=== PATIENT | male | born 1985 | race Caucasian/White ===

== ENCOUNTER 2018-04-19 10:26 | Inpatient (IN) | payer BC, OTHER ==
[~2018-04-19] VITALS: Ht 177.8 cm; Wt 76.2 kg
--- NOTE | 2018-04-19 12:14 | NUR ---
PREADMISSION Pt 32 y/o male received in intake. Alert and oriented to name, place, and time. P[place]. Skin moist to touch. Both palms with perspiration noted. Bilateral hand tremors noted. Anxious and restless. Irritable. Pt is not intoxicated. VS: T=98.0 YX=675/90 P=90 R=16 O2=96%@ra. Stated is here for etoh. Explained unit rules with acknowledgement. States this is his first time in treatment.
[2018-04-19 12:25] VITALS: BP 151/90
[2018-04-19] MEDS ORDERED: MIRALAX 17 GM POWD.PACK PO PRN (13:30)
[2018-04-19] MEDS ORDERED: THIAMINE HCL 200 MG/2 ML VIAL IM ONE (13:30)
[2018-04-19] MEDS ORDERED: ONDANSETRON ODT 4 MG TAB.RAPDIS SL PRN (13:30)
[2018-04-19] MEDS ORDERED: LORAZEPAM 1 MG TABLET PO PRN ×2 (13:30)
[2018-04-19] MEDS ORDERED: LOPERAMIDE HCL 2 MG CAPSULE PO PRN ×2 (13:30)
[2018-04-19] MEDS ORDERED: LORAZEPAM 2 MG/1 ML VIAL IM PRN (13:30)
[2018-04-19] MEDS ORDERED: MAG HYDROX/AL HYDROX/SIMETH 30 ML LIQUID UDC PO PRN (13:30)
[2018-04-19] MEDS ORDERED: ONDANSETRON 4 MG/2 ML VIAL IM PRN (13:30)
[2018-04-19] MEDS ORDERED: MAGNESIUM HYDROXIDE 30 ML LIQUID UDC PO PRN (13:30)
--- NOTE | 2018-04-19 13:45 | NUR ---
ADMISSION Patient arrived on unit at 1225, body search completed by male CHIEF CLINICAL DIETITIAN, no contraband found. Patients body assessment completed by male staff, skin is intact. Patient is 5 feet 10 inches, and weighs 168 lbs. Patient is a 32 year old male, with admitting Dx: Etoh Withdrawal. Patient denies taking any home medications. Patient is currently presenting s/sx of withdrawal. Patient was oriented to unit and to room, educated regarding call light use with good verbal understanding. Patient noted with flat affect, facial flushing, clammy skin, tremulous, worried/anxious mood, withdrawn, disheveled, unshaven, unkempt. Patients vital signs: BP: 151/90 HR: 90 RR: 16 Temp: 98.2 Pulse Ox: 96 % room air. Is Alert and oriented x4. "My Primary care Physician is Dr. Sargent In [place], but its been two years since I last saw him". Patient first time in treatment. Denies taking any home medications. Substance Use/History: 1. Etoh- 562ml-1125ml of vodka daily for 13-14 years. Patient reports began drinking when he was 15 years old. Reports his longest period of sobriety was for 50 days, two years ago. Reports last drink was 04/18/2018 at 2300 consumed 562ml of vodka. Withdrawal signs and symptoms: Verbalized typical withdrawal symptoms are: lack of appetite, anger, short temper, sweating, insomnia, sweaty palms, shaking, nausea/vomiting, and weakness" Past Medical History: Pre-diabetic Depression Patient reports: I am pre diabetic, according to my doctor two years ago, he suggested I quit drinking and I have been seeing a Psychologist ( Dr. Piper Camejo, works with [facility] rehab clinic in [place]) for the past three weeks once weekly and she suggested that I have depression and recommended I see a psychiatrist for medication Denies SI/HI. Verbalized feeling sad. Reports that at the age of 16 he had suicidal thoughts and was seeing a Therapist Verbalized When I was 16, I went to see a therapist, because I had suicidal thoughts, but currently I dont feel like hurting myself nor do I plan on doing so Reports that at this time his support system is his Psychiatrist. Patient denies any history of seizures or withdrawal induced delirium. Reports positive history of blackouts. Patient reports he has experiences blackouts about once a week for the past few months verbalized When I blackout, I write work emails, and say things that I dont remember , the state of my room is off, people usually tell me things that I was doing while drinking, but I cannot recall Patient reports alcohol has negatively impacted his life. Reports He attempted sobriety on his own, two years ago by going cold turkey and could not do it, was successful for 50 days, then began drinking again. Patient verbalizes he began drinking in the beginning: to escape reality due to a rough home/life, so I would drink to not deal with it Patient verbalized he continues to drink now because I have a very stressful Job, alcohol helped me get my work done It was not difficult to stop when I was about 20 years old, but for the past 10 years it has been difficulty more and more I never thought before that It was a problem, but now I see that it is When I try to stop on my own, Its usually short lived, about an hour or two, and I get really anxious and agitated, and I just end up drinking again, I feel unwell and sick when I go without a drink. I have very strong alcohol cravings. In the Mornings when I wake up, I feel sluggish, dehydrated, headaches, lightheaded, and nausea/vomiting, and very anxious the minute I wake up and Im not drunk anymore. Drinking has impacted my life in the sense that I lost my job three weeks ago because of my drinking, I have weak relationships with other people, a bad relationship with my significant other, and professional embarrassment, In my life I am unhappy with my anxiety, anger levels, lack of hobbies outside work, my drinking, and relationships with my peers and significant other Everything is hard for me to do without using alcohol, I feel like socializing is a problem, and I feel like I cant relax when I was sober for 50 days it was difficult for me to stay sober, because alcohol was very accessible, and I felt very anxious with intense cravings, and not having a support system made it very difficult I feel like currently I have a toxic relationship with my partner and that is not making it any better Since I began seeing my phycologist she has become a great support system for me Verbalized: I lost my Job because of my drinking, and my peers tell me that I dont see the world the way it is, so I began seeing a psychologist and guided me in the right direction, so I can try to stop drinking Decided to come into treatment today because: " I realized i couldn't I couldn't control my habits and I had an opportunity to not do it alone, because I cant do it alone, I need help". Verbalized Internal Motivator is, " To understand why my perception of the world seems to be off, and not seeing things clearly, I am my own internal motivator" Patient plans after detox: After detox I plan to attend a rehab treatment facility to continue my sobriety, I plan on having personal responsibility, since my psychologist is a great support system, we will be using a device like a breathalyzer linked to her phone, and I will send her my results on a daily basis Patient currently not intoxicated and is exhibiting s/sx of withdrawal: Tremors, generalized discomfort, diaphoretic, increase anxiety, agitation, fidgety, restless, headache, with admitting CIWA score of: 16. Patient seen and examined by Dr. Andrade with new orders. Patients safety measures are in place. Call light with in reach, Fall and Seizure precautions are observed and in place. Will continue to monitor closely.
--- NOTE | 2018-04-19 14:10 | NUR ---
PRN ATIVAN Patient currently exhibiting s/sx of withdrawal: Tremors, generalized discomfort, diaphoretic, increase anxiety, agitation, fidgety, restless, headache, with admitting CIWA score of: 16. Administered Ativan 2 mg PO as ordered. Will monitor effectiveness of medication.
--- NOTE | 2018-04-19 14:30 | NUR ---
MD COMMUNICATION Patient to start a 3 day Ativan taper as ordered.
[2018-04-19 15:05] LABS: *AMPHETAMINE, URINE NEGATIVE (NEGATIVE); *BARBITURATE, URINE NEGATIVE (NEGATIVE); *CANNABINOID, URINE NEGATIVE (NEGATIVE); *COCCAINE, URINE NEGATIVE (NEGATIVE); *OPIATE, URINE NEGATIVE (NEGATIVE); *PHENCYCLIDINE SCREEN,URINE NEGATIVE (NEGATIVE)
--- NOTE | 2018-04-19 15:10 | NUR ---
ATIVAN REASSESSMENT Medication effective, noted less agitated, current CIWA score of: 15. Will continue to monitor.
[2018-04-19 16:08] VITALS: BP 150/89
[2018-04-19] MEDS: LORAZEPAM 1 MG TABLET PO SCH ×3 (16:17→20:38)
[2018-04-19 17:11] LABS: BASOPHILS % (AUTO) 0.6 % (0.0-2.0); EOSINOPHILS # (AUTO) 0.1 K/uL (0.0-0.7); EOSINOPHILS % (AUTO) 1.6 % (0.0-7.0); HEMATOCRIT 49.1 % (36.7-47.1); LYMPHOCYTES # (AUTO) 1.9 K/uL (20.0-40.0); LYMPHOCYTES % (AUTO) 27.3 % (20.5-51.5); MEAN CORPUSCULAR HEMOGLOBIN 33.4 uug (23.8-33.4); MEAN CORPUSCULAR HGB CONC 35 g/dL (32.5-36.3); MEAN CORPUSCULAR VOLUME 96.6 fL (73.0-96.2); MONOCYTES # (AUTO) 0.5 K/uL (2.0-10.0); MONOCYTES % (AUTO) 7.7 % (0.0-11.0); NEUTROPHILS # (AUTO) 4.4 K/uL (1.8-8.9); NEUTROPHILS % (AUTO) 62.8 % (38.5-71.5); PLATELET COUNT (AUTO) 197 K/uL (152-348); RED BLOOD CELL COUNT(AUTO) 5.09 MIL/uL (4.06-5.63); WHITE BLOOD COUNT (AUTO) 7.1 K/uL (3.6-10.2)
[2018-04-19 17:25] LABS: ETHANOL < 3 MG/DL (0-0)
[2018-04-19 17:29] LABS: ALANINE AMINOTRANSFERASE 67 U/L (16-63); ALKALINE PHOSPHATASE 59 U/L (50-136); AMYLASE 74 U/L (25-115); ASPARTATE AMINOTRANSFERASE 44 U/L (15-37); BILIRUBIN,TOTAL 0.8 mg/dL (0.2-1.0); CARBON DIOXIDE 28 mmol/L (21-32); CHLORIDE 101 mmol/L (98-107); CREATININE 0.7 mg/dL (0.6-1.3); GLUCOSE 85 mg/dL (74-106); LIPASE 166 U/L (73-393); MAGNESIUM 2.1 mg/dL (1.8-2.4); TOTAL PROTEIN, SERUM 7.8 g/dL (6.4-8.2); UREA NITROGEN, BLOOD 9 mg/dL (7-18)
[2018-04-19] MEDS ORDERED: [UNRECOGNIZED DRUG - CODE] PO (17:53)
[2018-04-19] MEDS ORDERED: CALC300T4 PO (17:53)
--- NOTE | 2018-04-19 17:53 | NUR ---
HOME MEDICATION Home medication was found in patients [facility] pol[facility]: Per patient only uses when he has heartburn. Also found: Nasal decongestant ( Pseudoephedrine HCl 30mg) Per patient only uses when he has nasal congestion, has not used recently.
--- NOTE | 2018-04-19 18:52 | NUR ---
START OF SHIFT NOTE: This is report on patient, an 32 yea male admitted to [facility] on 04/19/2018 for Alcohol withdrawal, continues ordered 3 day Ativan Taper (today is day #1), which tolerated well. Withdrawal symptoms will be closely monitoring. Patient is alert and oriented x4, ambulatory with steady gait, soft clear speech, cooperative, and verbally appropriate. He is appears worried, easy distracted, anxious mood, and flat affect. Encourage to expressing his feelings, reassuring provided. The patient noted disheveled, unshaven, with uncombed hair. During day shift patient presented with following moderate withdrawal symptoms such as anxiety, agitation, depression, irritability, nervousness, headache, general body aches, restlessness, tremors, fatigue, and yawning. The most recent CIWA=16 at 1606. PRN Ativan 2 mg PO was effective per day shift nurse report. Patient remains compliant with treatment, medications, and diet regimen. Encouraged to attend group activities. Encouraged to intake fluids as tolerated. All needs met. Safety measures: Call light within reach, bed locked in lowest position, padded bed rails up x2. Endorsed by outgoing day shift nurse. Will continue to monitor closely.
--- NOTE | 2018-04-19 18:52 | NUR ---
END OF SHIFT Patient continues under close observation, admitting Dx: etoh withdrawal, patient started on a 3 day Ativan taper as ordered, will monitor closely. Encouraged patient to increase in PO fluid intake as tolerated. Safety measures are in place. Patient endorsed to shift boss nurse, all pertinent information discussed.
[2018-04-19 20:00] VITALS: BP 123/77
--- NOTE | 2018-04-19 20:00 | NUR ---
CIWA ASSESSMENT CIWA=11 at 1999. The patient appears sad, worried, with anxious mood and flat affect. Patient experienced withdrawal symptoms such as anxiety, agitation, irritability, flashed face, nervousness, sweating, tremors, restlessness, fatigue, and yawning. Ativan 1 mg PO will be administrated as ordered. Encouraged to intake fluids as tolerated. All needs met. Safety measures: Call light within reach, bed locked in lowest position, padded bed rails up x2. Will continue to monitor closely. Addendum: 04/20/18 at 0254 by LEO CHO RN CIWA=12.
[2018-04-19] MEDS: diphenhydrAMINE 50 MG CAPSULE PO PRN (20:38)
--- NOTE | 2018-04-19 20:38 | NUR ---
PRN BENADRYL 50 MG PO ADMINISTRATION. PRN Benadryl administrated for insomnia at 2037. Patient tolerated well. Encouraged to intake fluids as tolerated. All needs met. Safety measures: Call light within reach, bed locked in lowest position, padded bed rails up x2. Will continue to monitor closely.
--- NOTE | 2018-04-19 21:38 | NUR ---
PRN RE-ASSESSMENT The patient sleeping. Respirations are even and unlabored. RR:15. PRN Benadryl administrated for insomnia at 2037 was effective. Safe and calm environment provided. Encouraged to intake fluids as tolerated. All needs met. Safety measures: Call light within reach, bed locked in lowest position, padded bed rails up x2. Will continue to monitor closely.
[2018-04-20] VITALS: BP 115/79
--- NOTE | 2018-04-20 | NUR ---
CIWA ASSESSMENT CIWA=11 at 0000. Patient c/o anxiety, agitation, irritability, flashed face, nervousness, sweating, tremors, restlessness, and fatigue. Encouraged to intake fluids as tolerated. All needs met. Safety measures: Call light within reach, bed locked in lowest position, padded bed rails up x2. Will continue to monitor closely.
[2018-04-20 04:00] VITALS: BP 107/65
--- NOTE | 2018-04-20 04:00 | NUR ---
CIWA ASSESSMENT CIWA=9. Patient experienced anxiety, agitation, depression, irritability, nervousness, sweating, fine tremors, restlessness, and fatigue. Safe and calm environment provided. Encouraged to intake fluids as tolerated. All needs met. Safety measures: Call light within reach, bed locked in lowest position, padded bed rails up x2. Will continue to monitor closely.
--- NOTE | 2018-04-20 04:00 | NUR ---
COWS ASSESSMENT COWS=9. Patient experienced anxiety, agitation, depression, irritability, nervousness, sweating, fine tremors, restlessness, fatigue, and yawning. Safe and calm environment provided. Encouraged to intake fluids as tolerated. All needs met. Safety measures: Call light within reach, bed locked in lowest position, padded bed rails up x2. Will continue to monitor closely. Addendum: 04/20/18 at 0512 by LEO CHO RN wrong notes
--- NOTE | 2018-04-20 07:20 | NUR ---
END OF SHIFT NOTE: Endorsed patient, an 32 year old male continues ordered 3 day Ativan Taper (day #2) ordered for Alcohol withdrawal. Patient tolerated well. Withdrawal symptoms was closely monitored. Patient is alert and oriented x4, ambulatory with steady gait, soft clear speech, cooperative, and verbally appropriate. CIWA=12 at 2000, CIWA= 11 at 0000. The most recent CIWA=9 at 0400. Throughout my shift patient experienced anxiety, agitation, depression, irritability, nervousness, sweating, fine tremors, restlessness, and fatigue. PRN Benadryl administrated for insomnia at 2037, and was effective. Patient remains compliant with treatment, medications, and diet regimen. Patient remains compliant with treatment, medications, and diet regimen. Patient slept for 10 hours, intake 798 ml, output: voided x2. Safe and calm environment provided. Encouraged to intake fluids as tolerated. All needs met. Safety measures: Call light within reach, bed locked in lowest position, padded bed rails up x2. Endorsed to day shift nurse.
--- NOTE | 2018-04-20 07:47 | NUR ---
[id number] OF SHIFT Patient endorsement report received, patient is a 32 year old male admitted on 04/19/2018, with admitting Dx: ETOH withdrawal. Patient began a 3 day ativan taper yesterday, is scheduled to begin day 2 of taper. Per manager shift patient with last CIWA score of: 9 Patient slept for 10 hours, and received PRN: Benadryl. Patient received in bed with eyes closed respirations even and unlabored, responsive to verbal stimuli, will educate regarding plan of care for the day and medication regimen. Safety measures are in place. call light with in reach, will continue to monitor closely.
[2018-04-20 08:34] VITALS: BP 116/77
[2018-04-20] MEDS: FOLIC ACID 1 MG TABLET PO SCH (08:38)
[2018-04-20] MEDS: THIAMINE HCL 100 MG TABLET PO SCH (08:38)
[2018-04-20] MEDS: MULTIVITAMINS,THERAPEUTIC TABLET PO SCH (08:38)
[2018-04-20] MEDS: LORAZEPAM 1 MG TABLET PO SCH ×3 (08:39→20:37)
[2018-04-20] MEDS ORDERED: TUBERCULIN,PURIF.PROT.DERIV. 5 TU/0.1 ML TEST ID ONE (09:00)
--- NOTE | 2018-04-20 09:00 | NUR ---
CIWA ASSESSMENT Patient in bed, noted disheveled, unshaven, and unkempt. Patient noted with avoidant eye contact, worried facial expression, and pre-occupied. Has depressed affect and mood. Patient noted isolative, prefers to stay in room. Denies any SI/HI. Patient Noted exhibiting the following s/sx of withdrawal: tremors, diaphoresis, anxiety, agitation, fidgety, generalized discomfort, with CIWA score of: 12. Continues on Ativan taper as ordered, well tolerated. Safety measures in place. Will continue to monitor.
--- NOTE | 2018-04-20 13:00 | NUR ---
CIWA ASSESSMENT Patient continues exhibiting the following s/sx of withdrawal: tremors, diaphoresis, anxiety, agitation, fidgety, generalized discomfort, with CIWA score of: 12. Will continue to monitor.
[2018-04-20 13:17] VITALS: BP 137/93
[2018-04-20 17:03] VITALS: BP 127/89
--- NOTE | 2018-04-20 18:58 | NUR ---
END OF SHIFT Patient alert and oriented x4, continues under close observation. Patient continues with ongoing 3 day Ativan taper as ordered for admitting Dx of etoh withdrawal. During shift, patient in bed, noted disheveled, unshaven, and unkempt. , encouraged to self groom and maintain personal area. Patient noted with avoidant eye contact, worried facial expression, and pre-occupied. Has depressed affect and mood. Patient noted isolative, prefers to stay in room. Denies any SI/HI. Encourage to socialize with others, and participate in group activities. Patient also encouraged to participate in therapy sessions to learn new coping skills to prevent relapse, Patient Noted exhibiting the following s/sx of withdrawal: tremors, diaphoresis, anxiety, agitation, fidgety, generalized discomfort, and elevated heart rate with last CIWA score of: 12. Patient received no PRN mediation during shift. Received PPD to left F/A., Well tolerated. Safety measures in place. Endorsed to night shift supervisor nurse, all pertinent information was discussed.
--- NOTE | 2018-04-20 19:21 | NUR ---
Start Of Shift: Patient is a 32 yr old male who was admitted to [facility] on 04/19/18 for a [id number] supervised withdrawal from ETOH ( Vodka) he has been placed on a 3 day Ativan taper and this is day 2. No PRN medications were required or requested on day shift, his last CIWA was 12 @ 1600. currently he is in his room, he appears anxious and states he has a stress like headache but does not want to take any PRN medications at this time. Will continue to follow MD plan of care and offer support as needed.
[2018-04-20 20:00] VITALS: BP 138/93
--- NOTE | 2018-04-20 20:00 | NUR ---
CIWA 15 Withdrawal symptoms present as " fuzzy head ", bilateral hand tremors, hypertension, tachycardia, diaphoresis and restlessness. Scheduled 1 MG Ativan given along with PRN Clonidine and Benadryl
[2018-04-20] MEDS: CLONIDINE HCL 0.1 MG TABLET PO PRN (20:37)
[2018-04-20] MEDS: diphenhydrAMINE 50 MG CAPSULE PO PRN (20:37)
--- NOTE | 2018-04-20 20:40 | NUR ---
PRN Clonidine 0.1mg PO given for BP 138/93 HR 121 Benadryl 50 MG PO PRN given per request for sleep Will reassess.
--- NOTE | 2018-04-20 21:40 | NUR ---
PRN Reassess Patient states Clonidine 0.1mg PO has helped with his anxiety Benadryl 50 mg PO starting to be effective as patient feels drowsy
[2018-04-21] VITALS (7 sets, daily range): BP systolic 107–160; BP diastolic 67–108
--- NOTE | 2018-04-21 | NUR ---
CIWA / VITALS Deferred per patients request to be able to sleep through the night, pt asleep in bed, breathing even and unlabored.
--- NOTE | 2018-04-21 04:00 | NUR ---
CIWA 12 withdrawal symptoms present as bilateral hand tremors, thirst, fogginess, restlessness and irritability.
--- NOTE | 2018-04-21 07:18 | NUR ---
End Of Shift: Patient is a 32 yr old male who was admitted to [facility] on 04/19/18 for a medically supervised withdrawal from ETOH, he has been placed on a 4 day Ativan taper and this is day 3. He has been isolative to his room this shift and avoids contact with his peers. Withdrawal symptoms present as intermittent tachycardia, diaphoresis, bilateral hand tremors, " Brain Fog " and restlessness. PRN medication given this shift : Clonidine and Benadryl. He took a shower this evening and performed self cares. He had a fluid intake of 1500 ML,2 Voids and 0BM, last CIWA was 12 @ 0400. He slept for 8 hours. VS stable . Continue to follow MD plan of care and offer support and encourage to join group therapy sessions to learn new coping skills and peer interaction. Endorsed to day shift.
--- NOTE | 2018-04-21 07:32 | NUR ---
BEGINNING OF SHIFT Patient received in bed with eyes closed respirations even and unlabored, responsive to verbal stimuli. Admiting dx: etoh withdrawal, patient continues on a 3 day ativan taper as ordered, is scheduled to begin day 3 of taper. Endorsement report received from shift production associate nurse, all pertinent information was discussed. Per shift production associate patient with last CIWA score of: 12 Patient slept for 8 hours, and received PRN: Clonidine, and Benadryl. Will educate regarding plan of care for the day and medication regimen. Safety measures are in place. call light with in reach, will continue to monitor closely.
[2018-04-21 08:11] LABS: HEPATITIS B SURFACE AG Negative (Negative)
--- NOTE | 2018-04-21 09:00 | NUR ---
CIWA ASSESSMENT Patient in bed, Patient Noted exhibiting the following s/sx of withdrawal:Tremors that can be felt but not seen, barely sweating, anxiety and agitation, and generalized discomfort. Patient with CIWA score of: 8. Continues on Ativan taper as ordered, well tolerated. Safety measures in place. Will continue to monitor.
[2018-04-21] MEDS: MULTIVITAMINS,THERAPEUTIC TABLET PO SCH (09:01)
[2018-04-21] MEDS: FOLIC ACID 1 MG TABLET PO SCH (09:01)
[2018-04-21] MEDS: THIAMINE HCL 100 MG TABLET PO SCH (09:01)
[2018-04-21] MEDS: LORAZEPAM 1 MG TABLET PO SCH ×2 (09:02→20:17)
--- NOTE | 2018-04-21 13:00 | NUR ---
CIWA ASSESSMENT Continues to present with :Tremors that can be felt but not seen, barely sweating, anxiety and agitation, and generalized discomfort. Patient with CIWA score of: 8. Continues on Ativan taper as ordered, well tolerated. Safety measures in place. Will continue to monitor
--- NOTE | 2018-04-21 14:59 | NUR ---
Therapist prompted client to attend group therapy.
--- NOTE | 2018-04-21 16:46 | NUR ---
CIWA ASSESSMENT Still exhibiting the following s/sx :Tremors that can be felt but not seen, barely sweating, anxiety and agitation, and generalized discomfort. Patient with CIWA score of: 8. Continues on Ativan taper as ordered, well tolerated. Safety measures in place. Will continue to monitor
[2018-04-21] MEDS: CLONIDINE HCL 0.1 MG TABLET PO PRN (16:55)
--- NOTE | 2018-04-21 16:55 | NUR ---
BEHAVIOR/ PRN CLONIDINE Patient noted with increase anxiety, noted heavily crying, body posture tense, noted tightly squeezing water bottle, patient with rapid, heavily breaths. Therapist was notified, and is currently in room with patient. patients BP: 160/108 HR: 88, Patient was administered Clonidine 0.1mg PO for elevated blood pressure. Offered Vistaril and declined at this time, MD notified. Will continue to monitor closely.
--- NOTE | 2018-04-21 17:55 | NUR ---
CLONIDINE REASSESSMENT BP, decreased to 155/85. HR: 80. Patient also with decrease anxiety, patient noted calm, eating his dinner, verbalized " i feel well now, thank you"
--- NOTE | 2018-04-21 19:10 | NUR ---
END OF SHIFT Patient continues under close observation with ongoing 3 day Ativan taper as ordered, Is alert and oriented x4. During shift noted exhibiting the following s/sx of withdrawal: Tremors that can be felt but not seen, barely sweating, anxiety and agitation, and generalized discomfort. Patient with last CIWA score of: 8. Noted disheveled, and unshaven encouraged to self groom and maintain personal area. Has depressed affect and mood. Denies any SI/HI. Encourage to socialize with others, and participate in group activities. Patient also encouraged to participate in therapy sessions to learn new coping skills to prevent relapse, noted attending and participating. Patient with episode of increase anxiety, was with anxiety, noted heavily crying, body posture tense, noted tightly squeezing water bottle, patient with rapid, heavily breaths, occurred after group therapy, patient was calm and less anxious after speaking privately with therapist, therapist able to calm patient and provide with redirection.Patient received PRN:Clonidine during shift for elevated blood pressure and increase anxiety/agitation, medication was effective. Safety measures in place. Endorsed to technology development intern nurse, all pertinent information was discussed.
--- NOTE | 2018-04-21 19:30 | NUR ---
Start Of Shift Patient is a 32 yr old male who was admitted to [facility] on 04/19/18 for a medically supervised withdrawal from ETOH, he has been placed on a 4 day Ativan taper and this is day 3. PRN medication given on his shift : Clonidine 0.1mg PO, patient states that after attending all groups today he started feeling overwhelmed with cravings, Therapist provided 1:1 with patient and was able to calm him down and reassure him. He is in his room at this time lying on the bed resting, he is calm and cooperative and states he feels better. Last CIWA was 8 @ 1600. Continue to follow MD plan of care and offer support as needed.
[2018-04-21] MEDS: diphenhydrAMINE 50 MG CAPSULE PO PRN (20:17)
--- NOTE | 2018-04-21 20:20 | NUR ---
CIWA 10 Withdrawal symptoms present as sense of panic, cravings, restlessness, increased anxiety and agitation Scheduled 1mg PO Ativan given along with Motrin 600mg PO for thumb pain and Benadryl 50mg PO for sleep aid.
--- NOTE | 2018-04-21 20:20 | NUR ---
PRN Motrin 600mg Po given for pain 4/10 in thumb which he bruised on light switch Benadryl 50mg PO given per request for sleep aid
[2018-04-21] MEDS: IBUPROFEN 600 MG TABLET PO PRN (20:22)
--- NOTE | 2018-04-21 21:20 | NUR ---
PRN Reassess Patient asleep at this time , RR 12, breathing even and unlabored
--- NOTE | 2018-04-22 | NUR ---
CIWA/ VS Deferred due to patient being sound asleep, RR 14, breathing even and unlabored
--- NOTE | 2018-04-22 04:00 | NUR ---
CIWA/ VS Deferred due to patient being sound asleep, RR 14, breathing even and unlabored
--- NOTE | 2018-04-22 06:55 | NUR ---
End Of Shift: Patient is a 32 yr old male who was admitted to [facility] on 04/19/18 for a medically supervised withdrawal from ETOH, he has completed a 3 day Ativan taper. He has been isolative to his room this shift and avoids contact with his peers. Withdrawal symptoms present as diaphoresis, bilateral hand tremors, sense of panic and restlessness. PRN medication given this shift : Motrin and Benadryl. He had a fluid intake of 1750 ML,2 Voids and 0BM, last CIWA was 10 @ 8pm. He slept for 8 hours. Continue to follow MD plan of care and offer support and encourage to join group therapy sessions to learn new coping skills and peer interaction. Endorsed to day shift.
--- NOTE | 2018-04-22 07:40 | NUR ---
START OF SHIFT NOTE Received report from night nurse 32 year old male admitted for ETOH withdrawal and continues on 5 Ativan tolerating well. Per endorsement patient received PRN Motrin, Benadryl tolerated well, slept for 8 hours and last CIWA-10. Received patient asleep responsive to verbal and tactile stimuli. Breathing normal no SOB noted. Skin intact warm and dry to touch. All safety measures in place call light within reach. Will cont to monitor.
[2018-04-22 08:00] VITALS: BP 127/85
[2018-04-22] MEDS: FOLIC ACID 1 MG TABLET PO SCH (08:57)
[2018-04-22] MEDS: MULTIVITAMINS,THERAPEUTIC TABLET PO SCH (08:57)
[2018-04-22] MEDS: THIAMINE HCL 100 MG TABLET PO SCH (08:57)
[2018-04-22] MEDS: LORAZEPAM 1 MG TABLET PO SCH ×2 (08:57→20:16)
--- NOTE | 2018-04-22 08:57 | NUR ---
CIWA ASSESSMENT CIWA-9, Patient continues to presented with anxiety, agitation, restless, diaphoresis, light headed, body aches, bilateral hand tremors. Patient was given his schedule medication. Will cont to monitor.
--- NOTE | 2018-04-22 10:43 | NUR ---
Therapist prompted client to attend group therapy.
[2018-04-22 12:00] VITALS: BP 120/87
--- NOTE | 2018-04-22 12:00 | NUR ---
CIWA ASSESSMENT CIWA-8, Patient continues to presented with anxiety, agitation, restless, diaphoresis, bilateral hand tremors. Will cont to monitor.
[2018-04-22 16:00] VITALS: BP 138/88
--- NOTE | 2018-04-22 16:00 | NUR ---
CIWA ASSESSMENT CIWA-9, Patient continues to presented with anxiety, agitation, restless, diaphoresis, light headed, body aches, bilateral hand tremors. Will cont to monitor.
[2018-04-22] MEDS: IBUPROFEN 600 MG TABLET PO PRN (17:37)
--- NOTE | 2018-04-22 17:37 | NUR ---
PRN MOTRIN Patient reported right thumb pain 5/10 radiating to his arm. Patient stated cut his finger nails too short. PRN Motrin 600mg PO given as ordered.
--- NOTE | 2018-04-22 18:37 | NUR ---
MOTRIN REASSESSMENT Per patient medication was effective pain lower to 2/10.
--- NOTE | 2018-04-22 19:14 | NUR ---
END OF SHIFT NOTE Gave report to night nurse, 32 year old male admitted for ETOH withdrawal. Patient continues with Ativan taper tolerating well. Patient presented with anxiety, agitation, restless, light headed, numbness on bilateral hands, sweats, bilateral hand tremors. Patient was given scheduled medications along with PRN Motrin 600mg PO noted to be effective. Encourage PO fluids as tolerated. Patient noted attending groups and activities. Last CIWA score was -9. All safety measures in place, call light within reach. Patient endorse to night nurse in stable condition.
--- NOTE | 2018-04-22 19:30 | NUR ---
Start of Shift: Patient is a 32 yr old male who was admitted to [facility] on 04/19/18 for a medically supervised withdrawal from ETOH, he continues on a 4 day Ativan taper which has been well tolerated. PRN Medication given on day shift : Motrin for thumb pain, last CIWA was 9 @ 1600. Currently he is awake in his room and voices no concerns at this time, he states he went to all groups today and has learned some good coping skills. Continue to follow MD plan of care and offer support as needed.
[2018-04-22 20:00] VITALS: BP 125/85
--- NOTE | 2018-04-22 20:15 | NUR ---
CIWA 10 Patient presents with fine bilateral hand tremors, increased anxiety, depressed flat affect. scheduled Ativan 1mg PO given with Benadryl per request for sleep aid and Tylenol for thumb pain.
[2018-04-22] MEDS: ACETAMINOPHEN 325 MG TABLET PO PRN (20:16)
--- NOTE | 2018-04-22 20:16 | NUR ---
PRN Tylenol 650mg PO given for thumb pain 4/10 Benadryl 50mg PO given for sleep aid per request.
[2018-04-22] MEDS: diphenhydrAMINE 50 MG CAPSULE PO PRN (20:17)
--- NOTE | 2018-04-22 21:16 | NUR ---
PRN Reassess Patient states Tylenol was effective for the throbbing in his thumb and that he is starting to feel drowsy after the benadryl, he requests not to be awoken through the night for Vitals as he would like to sleep uninterrupted.
--- NOTE | 2018-04-23 | NUR ---
CIWA/ Vital Patient refused, does not want to be woken up through the night. Breathing even and unlabored, RR 14, call light within reach.
--- NOTE | 2018-04-23 04:00 | NUR ---
CIWA/VITALS Deferred due to patients request to be allowed to sleep through the night uninterrupted.
--- NOTE | 2018-04-23 06:46 | NUR ---
End Of Shift: Patient is a 32 yr old male who was admitted to [facility] on 04/19/18 for a medically supervised withdrawal from ETOH, he has been placed on a 4 day Ativan taper and this is day 4. Withdrawal symptoms present as diaphoresis, bilateral hand tremors, increased anxiety and restlessness. PRN medication given this shift : Tylenol and Benadryl. He had a fluid intake of 1500 ML,2 Voids and 0BM, last CIWA was 10 @ 8pm. He slept for 9 hours. Continue to follow MD plan of care and offer support and encourage to join group therapy sessions to learn new coping skills and peer interaction. Endorsed to day shift.
[2018-04-23 07:26] LABS: BASOPHILS % (AUTO) 0.8 % (0.0-2.0); EOSINOPHILS # (AUTO) 0.1 K/uL (0.0-0.7); EOSINOPHILS % (AUTO) 2.1 % (0.0-7.0); HEMATOCRIT 48.2 % (36.7-47.1); HEMOGLOBIN 16.6 g/dL (12.5-16.3); LYMPHOCYTES # (AUTO) 2.3 K/uL (20.0-40.0); LYMPHOCYTES % (AUTO) 35.7 % (20.5-51.5); MEAN CORPUSCULAR HEMOGLOBIN 33.2 uug (23.8-33.4); MEAN CORPUSCULAR HGB CONC 34 g/dL (32.5-36.3); MEAN CORPUSCULAR VOLUME 96.6 fL (73.0-96.2); MONOCYTES # (AUTO) 0.6 K/uL (2.0-10.0); NEUTROPHILS # (AUTO) 3.3 K/uL (1.8-8.9); NEUTROPHILS % (AUTO) 52.4 % (38.5-71.5); PLATELET COUNT (AUTO) 192 K/uL (152-348); RED BLOOD CELL COUNT(AUTO) 4.99 MIL/uL (4.06-5.63); WHITE BLOOD COUNT (AUTO) 6.4 K/uL (3.6-10.2)
--- NOTE | 2018-04-23 07:40 | NUR ---
START OF SHIFT NOTE Received report from night nurse 32 year old male admitted for ETOH withdrawal and continues on 5 Ativan tolerating well. Per endorsement patient received PRN Tylenol, Benadryl tolerated well, slept for 9 hours and last CIWA-10. Received patient with flat facial expression, anhedonia. Breathing normal no SOB noted. Skin intact warm and dry to touch. All safety measures in place call light within reach. Will cont to monitor.
[2018-04-23 07:42] LABS: BILIRUBIN,DIRECT 0.2 mg/dL (0.0-0.2); BILIRUBIN,TOTAL 0.6 mg/dL (0.2-1.0); TOTAL PROTEIN, SERUM 7.2 g/dL (6.4-8.2)
[2018-04-23 08:00] VITALS: BP 119/90
[2018-04-23] MEDS: THIAMINE HCL 100 MG TABLET PO SCH (08:22)
[2018-04-23] MEDS: FOLIC ACID 1 MG TABLET PO SCH (08:22)
[2018-04-23] MEDS: MULTIVITAMINS,THERAPEUTIC TABLET PO SCH (08:22)
--- NOTE | 2018-04-23 08:22 | NUR ---
CIWA ASSESSMENT Patient presented with anxiety agitation, anhedonia, bilateral hand tremors, restless, sweats, CIWA score noted 11. Patient received his scheduled Ativan and vitamins. Will cont to monitor.
[2018-04-23] MEDS ORDERED: LORAZEPAM 1 MG TABLET PO SCH (09:00)
[2018-04-23] MEDS: IBUPROFEN 600 MG TABLET PO PRN (10:13)
--- NOTE | 2018-04-23 10:13 | NUR ---
PRN MOTRIN Patient reported right thumb pain 6/10 radiating to his arm. PRN Motrin 600mg PO given as ordered. Will cont to monitor and reassess.
--- NOTE | 2018-04-23 11:13 | NUR ---
MOTRIN REASSESSMENT Per patient Motrin was effective in lowering the pain 3/10.
[2018-04-23] MEDS ORDERED: DIPH50CA37 PO (11:58)
[2018-04-23] MEDS ORDERED: MULT-24 PO (11:58)
[2018-04-23 12:00] VITALS: BP 121/94
[2018-04-23] MEDS ORDERED: KETOROLAC TROMETHAMINE 30 MG INJ IM PRN (12:00)
--- NOTE | 2018-04-23 12:00 | NUR ---
CIWA ASSESSMENT Patient continues to presents with anxiety agitation, bilateral hand tremors, restless, sweats, CIWA score noted 10. Will cont to monitor.
[2018-04-23] MEDS: BACITRACIN/POLYMYXIN B OINT 15 GM TUBE TOP SCH ×2 (13:02→20:55)
[2018-04-23] MEDS: ACETAMINOPHEN 325 MG TABLET PO PRN (13:06)
--- NOTE | 2018-04-23 13:06 | NUR ---
PRN TYLENOL Patient reported right thumb pain 6/10 radiating to his arm skin intact warm no redness, swelling noted. PRN Tylenol 650mg PO given as ordered. MD notified. Will cont to monitor and reassess.
--- NOTE | 2018-04-23 14:06 | NUR ---
TYLENOL REASSESSMENT Per patient Tylenol was effective in lowering the pain 4/10.
--- NOTE | 2018-04-23 15:00 | NUR ---
MD Communication Pt has Paronychia of left thumb. Dr. Andrade recommends drainage. Surgeon Dr. Douglas Choi was contacted and he or another member of his office can see pt tomorrow but would not be here before 0930 discharge. Pt was offered the number to their wound care office. Pt declined and reported he would follow up with his primary care physician. Bactrim PO ordered Dr. Choi and abx ointment ordered by Dr. Andrade.
[2018-04-23] MEDS: SULFAMETH/TRIMETH 800/160 MG TABLET PO SCH ×2 (15:31→20:51)
[2018-04-23] MEDS: LACTOBACILLUS RHAMNOSUS GG 1 EACH CAPSULE PO SCH ×2 (15:50→20:52)
[2018-04-23 16:00] VITALS: BP 132/95
--- NOTE | 2018-04-23 16:00 | NUR ---
CIWA ASSESSMENT Patient reported anxiety agitation, CIWA score noted 8. Patient set for discharge in AM. Will cont to monitor.
--- NOTE | 2018-04-23 19:09 | NUR ---
END OF SHIFT NOTE Gave report to night nurse, 32 year old male admitted for ETOH withdrawal. Patient completed his Ativan taper tolerated well. Patient presented with anxiety, agitation, restless, light headed, numbness on bilateral hands, sweats, bilateral hand tremors. Patient was given scheduled medications along with PRN Motrin 600mg PO and Tylenol 650mg PO for right thumb pain noted to be effective. Patient has been isolative to his room and isolative to his room. Encourage patient to socialized with peers,participates in groups activities. patient denies any SI/HI. Vital signs WNL. Patient scheduled for discharge in AM. Encourage PO fluids as tolerated. Patient noted attending groups and activities. Last CIWA score was- 8. All safety measures in place, call light within reach. Patient endorse to night nurse in stable condition.
--- NOTE | 2018-04-23 19:30 | NUR ---
START OF SHIFT Received 32 year old male patient admitted on 04/19/18 for ETOH withdrawal. Pt is alert and oriented x4. Pt noted with anxiety, restlessness, and flushed face. Pt completed a 5 day Ativan taper and tolerated well. He is scheduled to be DC tomorrow to [facility]. Per endorsement, pt received PRN Motrin and Tylenol and new order for triple ATB and Bactrim for right thumb paronychia. Last CIWA:8 at 1600. Breathing is even and unlabored, safety meausres in place. Will continue to monitor.
[2018-04-23 20:00] VITALS: BP 120/82
--- NOTE | 2018-04-23 20:00 | NUR ---
CIWA Pt noted with anxiety, flushed face, and restlessness. CIWA:7. Will continue to monitor.
[2018-04-23] MEDS: diphenhydrAMINE 50 MG CAPSULE PO PRN (20:51)
--- NOTE | 2018-04-23 20:53 | NUR ---
PRN BENADRYL/TORADOL Pt complains of inability to sleep. Pt complains of 8/10 throbbing pain on right thumb. PRN Benadryl and Toradol administered as ordered. Safety measures in place. Will monitor effectiveness.
--- NOTE | 2018-04-23 20:55 | NUR ---
MED REFUSED Pt refused 2100 dose of double antibiotic ointment. Risks/benefits explained. Pt still refused. Safety measures in place. Will monitor.
--- NOTE | 2018-04-23 21:23 | NUR ---
PRN TORADOL REASSESSMENT Pt appears drowsy but able to verbalize that Toradol was effective in relieving his pain. Pain decreased to 4/10. Breathing even and unlabored, safety measures in place. Will monitor.
--- NOTE | 2018-04-23 21:53 | NUR ---
PRN BENADRYL REASSESSMENT PRN medication effective. Pt is lying in bed with eyes closed and is noted to be asleep. Breathing is even and unlabored, safety measures in place. Will monitor.
--- NOTE | 2018-04-24 | NUR ---
VITALS REFUSED, CIWA DEFERRED 0000 vitals refused. CIWA deferred d/t pt lying in bed with eyes closed noted to be asleep. Breathing is even and unlabored, safety measures in place. Will monitor.
--- NOTE | 2018-04-24 04:00 | NUR ---
VITALS REFUSED, CIWA DEFERRED 0400 vitals refused. CIWA deferred d/t pt lying in bed with eyes closed noted to be asleep. Breathing is even and unlabored, safety measures in place. Will continue to monitor.
--- NOTE | 2018-04-24 07:10 | NUR ---
END OF SHIFT Pt is a 32 year old male patient admitted on 04/19/18 for ETOH withdrawal. Pt remains alert and oriented x4. Pt was noted with anxiety, restlessness, and flushed face during the shift. He is scheduled to be DC today to [facility]. At 2052 he received PRN Benadryl and Toradol. He slept a total of 8 hrs, Intake: 3,000mL, Void: x3, BM:0, Last CIWA:7 at 1999. Breathing is even and unlabored, safety measures in place. Endorsed to AM shift.
--- NOTE | 2018-04-24 07:30 | NUR ---
START OF SHIFT NOTE Received report from night nurse 32 year old male admitted for ETOH withdrawal and completed his 5 Ativan tolerating well. Per endorsement patient received PRN Toradol,Benadryl tolerated well, slept for 8 hours and last CIWA-7. Received patient alert awake oriented x4, with flat facial expression, anhedonia, poor eye contact. Breathing normal no SOB noted. Skin intact warm and dry to touch. All safety measures in place call light within reach. Will cont to monitor.
[2018-04-24 08:00] VITALS: BP 127/91
[2018-04-24] MEDS: FOLIC ACID 1 MG TABLET PO SCH (08:22)
[2018-04-24] MEDS: THIAMINE HCL 100 MG TABLET PO SCH (08:23)
[2018-04-24] MEDS: BACITRACIN/POLYMYXIN B OINT 15 GM TUBE TOP SCH (08:23)
[2018-04-24] MEDS: MULTIVITAMINS,THERAPEUTIC TABLET PO SCH (08:23)
[2018-04-24] MEDS: LACTOBACILLUS RHAMNOSUS GG 1 EACH CAPSULE PO SCH (08:23)
[2018-04-24] MEDS: SULFAMETH/TRIMETH 800/160 MG TABLET PO SCH (08:23)
--- NOTE | 2018-04-24 10:27 | NUR ---
DISCHARGE NOTE Patient is alert awake oriented discharge from [facility] in stable condition. Vital signs WNL. Skin intact warm and dry to touch. Patient denies any SI/HI. All discharge paper work completed signed and dated. All belongings returned to the patient including his home medication and prescriptions. Patient refused to be discharged to [facility] , multiple staff members talked to the patient regarding importance of going to the treatment, patient verbally understand still refused. Patient discharge from [facility] to home in stable condition on 04/24/18 at 1027.
== END 2018-04-24 10:27 | disposition other institution (70) | DRG 895 ==
LOC: SRC 11:27
PROVIDERS: ADMIT Family Medicine Addiction Medicine; ATTEND Family Medicine Addiction Medicine
PROC: HZ2ZZZZ Detoxification Services for Substance Abuse Treatment (ICD-10-PCS; principal; 2018-04-19)
PROC: HZ31ZZZ Individual Counseling for Substance Abuse Treatment, Behavioral (ICD-10-PCS; principal; 2018-04-19)
PROC: HZ41ZZZ Group Counseling for Substance Abuse Treatment, Behavioral (ICD-10-PCS; 2018-04-20)
DX: F10.230 Alcohol dependence with withdrawal, uncomplicated (principal); Y90.9 Presence of alcohol in blood, level not specified; E86.0 Dehydration; F41.9 Anxiety disorder, unspecified; R74.0 Nonspecific elevation of levels of transaminase and lactic acid dehydrogenase [LDH]; Y90.6 Blood alcohol level of 120-199 mg/100 ml; L03.011 Cellulitis of right finger; I10 Essential (primary) hypertension; R73.03 Prediabetes; Z86.718 Personal history of other venous thrombosis and embolism; E78.00 Pure hypercholesterolemia, unspecified; F32.9 Major depressive disorder, single episode, unspecified
CPT/HCPCS: 36415; 70030-TC; 80307; 83690; 83735; 85025; 86580; 86592; 86705; 86803; 87340; 87806; G0480; J1885; J3411; Q0163